=== PATIENT | female | born 1990 | race Caucasian/White ===

== ENCOUNTER 2019-10-22 11:31 | Outpatient (CLI) | payer OTHER, SELFPAY ==
[2019-10-22 11:55] VITALS: BP 138/89; PULSE 102
[2019-10-22 12:49] LABS: Basophils Percent Auto 0.1 % (0.2-1.2); Eosinophils Absolute Auto 0.1 K/mm3 (0-0.3); Eosinophils Percent Auto 0.5 % (0-4.4); Hemoglobin 10.4 g/dL (12.0-15.0); Immature Granulocyte Absolute 0.05 K/mm3 (0.00-0.031); Immature Granulocyte Percent A 0.5 % (0-0.5); Lymphocytes Absolute Auto 1.16 K/mm3 (0.9-3.2); Lymphocytes Percent Auto 12.4 % (18.3-44.2); Mean Corpuscular HGB Conc 32.5 g/dl (32-36); Monocytes Absolute Auto 0.6 K/mm3 (0.1-0.6); Monocytes Percent Auto 6.5 % (2.6-8.5); Neutrophils Absolute Auto 7.5 K/mm3 (1.3-6.7); Platelet Count Result 289 k/mm3 (150-375); Red Blood Count 3.72 M/mm3 (4.2-5.4); Red Cell Distribution Width 14.4 % (11.5-14.5); White Blood Count 9.4 K/mm3 (4.5-10.0)
[2019-10-22 12:59] LABS: Add Urine Microscopic? YES; Appearance Urine Clear (Clear); Bacteria Urine Trace /hpf; Bilirubin Urine Negative (Negative); Blood Urine Negative (Negative); Color Urine Yellow (Yellow); Glucose Urine UA Negative (Negative); Ketones Urine Negative (Negative); Leukocyte Esterase Ur Trace LEU/UL (Negative); Mucus Urine Rare /lpf; Nitrate Urine Negative (Negative); Protein Urine Negative (Negative); RBC Urine 0-2 /hpf (0-2); Specific Grav Ur 1.011 (1.001-1.035); Squamous Epithelial Cell Urine Occasional /hpf (Few); Urobilinogen Urine Negative mg/dL (<2.0); WBC Urine 0-3 /hpf
[2019-10-22 13:00] LABS: Creatinine Urine 63.8 mg/dL; Total Protein Urine Random 12 mg/dL
[2019-10-22 13:02] LABS: Alanine Aminotransferase 12 U/L (4-35); Albumin Level 3.3 g/dL (3.5-5.1); Alkaline Phosphatase 139 U/L (38-126); Anion Gap 6 mmol/L (8-16); Aspartate Amino Transferase 19 U/L (14-36); Bilirubin,Total < 0.1 mg/dL (0.2-1.3); Blood Urea Nitrogen 8 mg/dL (7-17); Calcium 8.7 mg/dL (8.4-10.2); Carbon Dioxide 21 mmol/L (22-30); Chloride 105 mmol/L (98-107); Estimated Glomerular Filt Rate > 60; Glucose 88 mg/dL (65-105); Potassium 3.9 mmol/L (3.4-5.0); Sodium 132 mmol/L (137-145); Uric Acid 4.5 mg/dL (2.5-7.5)
[2019-10-22 13:13] VITALS: BP 133/77; PULSE 105
== END 2019-10-22 13:25 | disposition home or self-care (01) ==
LOC: ANHOBOP 11:36
PROVIDERS: PCP Family Medicine; Visit Provider Advanced Practice Midwife
DX: O13.9 Gestational [pregnancy-induced] hypertension without significant proteinuria, unspecified trimester (principal); Z3A.00 Weeks of gestation of pregnancy not specified
CPT/HCPCS: 36415; 59025; 80053; 81001; 82570; 84156; 84550; 85025

== ENCOUNTER 2019-10-29 17:39 | Inpatient (IN) | payer OTHER, SELFPAY ==
[2019-10-29] VITALS (43 sets, daily range): BP systolic 125–147; BP diastolic 70–122; PULSE 84–115; O2SAT 98–100; BMI 36.3
[2019-10-29 16:37] LABS: Basophils Percent Auto 0.1 % (0.2-1.2); Eosinophils Absolute Auto 0.1 K/mm3 (0-0.3); Eosinophils Percent Auto 0.6 % (0-4.4); Hematocrit 31.1 % (37.0-47.0); Hemoglobin 9.9 g/dL (12.0-15.0); Immature Granulocyte Absolute 0.04 K/mm3 (0.00-0.031); Immature Granulocyte Percent A 0.4 % (0-0.5); Lymphocytes Absolute Auto 1.41 K/mm3 (0.9-3.2); Lymphocytes Percent Auto 13.7 % (18.3-44.2); Mean Corpuscular HGB Conc 31.8 g/dl (32-36); Mean Corpuscular Hemoglobin 27.3 pg (26-34); Mean Corpuscular Volume 85.7 fl (80-100); Mean Platelet Volume 11.8 fl (7.4-10.4); Monocytes Absolute Auto 0.6 K/mm3 (0.1-0.6); Monocytes Percent Auto 5.8 % (2.6-8.5); Neutrophils Absolute Auto 8.2 K/mm3 (1.3-6.7); Neutrophils Percent Auto 79.4 % (45.5-73.1); Platelet Count Result 307 k/mm3 (150-375); Red Blood Count 3.63 M/mm3 (4.2-5.4); Red Cell Distribution Width 14.4 % (11.5-14.5); White Blood Count 10.3 K/mm3 (4.5-10.0)
[2019-10-29 16:44] LABS: Alanine Aminotransferase 11 U/L (4-35); Albumin Level 3.3 g/dL (3.5-5.1); Alkaline Phosphatase 163 U/L (38-126); Anion Gap 7 mmol/L (8-16); Aspartate Amino Transferase 20 U/L (14-36); Bilirubin,Total 0.2 mg/dL (0.2-1.3); Blood Urea Nitrogen 6 mg/dL (7-17); Calcium 8.7 mg/dL (8.4-10.2); Carbon Dioxide 20 mmol/L (22-30); Chloride 104 mmol/L (98-107); Estimated Glomerular Filt Rate > 60; Glucose 78 mg/dL (65-105); Potassium 3.9 mmol/L (3.4-5.0); Sodium 131 mmol/L (137-145); Uric Acid 4.1 mg/dL (2.5-7.5)
[2019-10-29 16:47] LABS: Creatinine Urine 15.8 mg/dL; Total Protein Urine Random 13 mg/dL
--- NOTE | 2019-10-29 18:19 | LDADM ---
This patient, Summer Hirsch, was admitted to Labor/Delivery/Recovery 107 on 10/29/19 at 17:39. Plans for labor, pain management and were discussed with patient. Patient/family oriented to hospital policies and general routines including ID bracelet, bed and alarms, visiting hours, pain management, procedures, bathroom and other care routines, personal items, smoking policy, room service/diet and guest tray routines, security routines, and visiting hours. Patient/Family are encouraged to report perceived risks to care and to ask questions if they do not understand what they are told or what they should do. See OBIX for further documentation.
--- NOTE | 2019-10-29 20:02 | WPDANESEPPF ---
Anes - Initial Pre Proc Eval Procedure: labor epidural Date/Time: 10/29/19 20:02 Surgeon: Michaela Davidson MD Pre Op Diagnosis: labor pain Pre Op Diagnosis: Elevated BP Patient Data Age: 28 Gender: F Height: 1.6 m Weight: 93 kg Last Vital Signs Pulse 102 H 10/29/19 19:45 BP 132/78 10/29/19 19:45 Allergies Allergy/AdvReac Type Severity Reaction Status Date / Time No Known Allergies Allergy Verified 10/09/19 14:34 Home Medications Medication Instructions Recorded Confirmed Type PNV cmb#95-ferrous fumarate-FA 1 tablet PO DAILY 10/09/19 10/22/19 History [] metronidazole 500 mg PO BID 10/22/19 10/22/19 History Laboratory Tests 10/29/19 10/29/19 10/29/19 16:22 16:22 16:22 WBC 10.3 K/mm3 H K/mm3 (4.5-10.0) RBC 3.63 M/mm3 L M/mm3 (4.2-5.4) Hgb 9.9 g/dL L g/dL (12.0-15.0) Hct 31.1 % L % (37.0-47.0) MCV 85.7 fl fl (80-100) MCH 27.3 pg pg (26-34) MCHC 31.8 g/dl L g/dl (32-36) RDW 14.4 % % (11.5-14.5) Plt Count 307 k/mm3 k/mm3 (150-375) MPV 11.8 fl H fl (7.4-10.4) Immature Gran % (Auto) 0.4 % % (0-0.5) Neut % (Auto) 79.4 % H % (45.5-73.1) Lymph % (Auto) 13.7 % L % (18.3-44.2) [place] % (Auto) 5.8 % % (2.6-8.5) Eos % (Auto) 0.6 % % (0-4.4) Baso % (Auto) 0.1 % L % (0.2-1.2) Lymph # (Auto) 1.41 K/mm3 K/mm3 (0.9-3.2) [place] # (Auto) 0.6 K/mm3 K/mm3 (0.1-0.6) Eos # (Auto) 0.1 K/mm3 K/mm3 (0-0.3) Baso # (Auto) 0.0 K/mm3 K/mm3 (0.0-0.1) Abs Immat Gran (auto) 0.04 K/mm3 H K/mm3 (0.00-0.031) Absolute Neuts (auto) 8.2 K/mm3 H K/mm3 (1.3-6.7) Absolute Nucleated RBC 0.0 K/mm3 K/mm3 (0.0-0.012) Nucleated RBC % 0.0 % % (0.0-0.2) Sodium 131 mmol/L L mmol/L (137-145) Potassium 3.9 mmol/L mmol/L (3.4-5.0) Chloride 104 mmol/L mmol/L (98-107) Carbon Dioxide 20 mmol/L L mmol/L (22-30) Anion Gap 7 mmol/L L mmol/L (8-16) BUN 6 mg/dL L mg/dL (7-17) Creatinine 0.60 mg/dL L mg/dL (0.7-1.0) Estim Creat Clear Calc Not Reportable Estimated GFR > 60 (59 - ) Glucose 78 mg/dL mg/dL (65-105) Uric Acid 4.1 mg/dL mg/dL (2.5-7.5) Calcium 8.7 mg/dL mg/dL (8.4-10.2) Total Bilirubin 0.2 mg/dL mg/dL (0.2-1.3) AST 20 U/L U/L (14-36) ALT 11 U/L U/L (4-35) Alkaline Phosphatase 163 U/L H U/L (38-126) Total Protein 7.0 g/dL g/dL (6.3-8.2) Albumin 3.3 g/dL L g/dL (3.5-5.1) U Random Total Protein 13 mg/dL mg/dL Urine Creatinine 15.8 mg/dL mg/dL RPR Blood Type Antibody Screen 10/29/19 10/29/19 18:19 18:19 WBC RBC Hgb Hct MCV MCH MCHC RDW Plt Count MPV Immature Gran % (Auto) Neut % (Auto) Lymph % (Auto) [place] % (Auto) Eos % (Auto) Baso % (Auto) Lymph # (Auto) [place] # (Auto) Eos # (Auto) Baso # (Auto) Abs Immat Gran (auto) Absolute Neuts (auto) Absolute Nucleated RBC Nucleated RBC % Sodium Potassium Chloride Carbon Dioxide Anion Gap BUN Creatinine Estim Creat Clear Calc Estimated GFR Glucose Uric Acid Calcium Total Bilirubin AST ALT Alkaline Phosphatase Total Protein Albumin U Random Total Protein Urine Creatinine RPR Pending Blood Type A Positive Antibody Scre
--- NOTE | 2019-10-29 20:03 | WPDOBADMIT ---
Obstetrics - Admit Note Admission Note: record reviewed. No pertinent additions to the history and/or any subsequent changes in the physical findings that are not consistent with the expected course of the were found. MIL for GHTN, PCR .8, increased swelling and visual changes, SVE 3/70/-2, AROM small amount of clear odorless fluid Additions to the history and/or subsequent changes in the physical findings follow. None.
[2019-10-29] MEDS: LACTATED RINGERS 1,000 ML 125 ML IV CONT (20:40)
[2019-10-29] MEDS: OXYTOCIN 30 UNITS/NS 500 ML 30 UNITS/500 ML BAG 6 UNITS IV CONT (20:40)
[2019-10-30] VITALS (73 sets, daily range): BP systolic 91–144; BP diastolic 63–93; PULSE 80–140; RESP 12–18; TEMP 36.6–37; O2SAT 97–100
[2019-10-30] MEDS: LACTATED RINGERS 1,000 ML 125 ML IV CONT (01:17)
--- NOTE | 2019-10-30 03:51 | PM.OBPRVD ---
OB - Delivery Note Procedure Delivery date: 10/30/19 Procedure: Vaginal delivery events: Induced HTN Induction method: AROM and per pitocin protocol Delivery monitor: external FHT and internal uterine Route of delivery: Laceration description: None Specimen: Yes Estimated blood loss (mL): 135 Anesthesia type: Epidural Disposition: other () [place] Baby Date of : 10/30/19 Time of : 03:38 Weeks of gestation at delivery: 38 gender: Female Weight (pounds): 6 Weight (ounces): 7 presentation: vertex position: Left Occiput Anterior Placenta delivery description: Spontaneous cord vessel description: 3 Vessels, Nuchal Cord, Tight and Clamped/Cut score one minute: 3 score five minutes: 9 Narrative: Baby delivered and handed to nursery. At our departure baby and mother in stable condition.
[2019-10-30] MEDS: OXYTOCIN 30 UNITS/NS 500 ML 30 UNITS/500 ML BAG 125 UNITS IV CONT (04:23)
--- NOTE | 2019-10-30 07:50 | OBPPTRN ---
0630 Patient transferred to post room #291 via W/C. Support person present. Oriented to unit, room, information board, rooming in, admission packet and security measures. Patient verbalizes understanding.
[2019-10-30] MEDS: MULTIVIT/MIN/PREN/FOL AC/IRON TABLET 1 TAB PO (09:28)
[2019-10-30] MEDS: BENZOCAINE 20% AER SPR (*SP) 56 GM CAN 1 SPRAY TOPICAL (09:38)
[2019-10-30] MEDS: WITCH HAZEL 40 PADS 1 PAD TOPICAL (09:38)
[2019-10-30 11:41] LABS: Rapid Plasma Reagin Non-Reactive (NonReactive)
--- NOTE | 2019-10-30 13:15 | PC.NURSE ---
Mother called out for assist with latch due to tenderness. Reviewed feeding cues, frequencies, duration of feedings, feeding elimination flow sheet, and signs of adequate intake. Demonstrated stimulation techniques to wake infant for feeding. Mother is attempting latch with cradle, allowing infant to self latch. Assisted with infant to breast. Reviewed positioning/alignment in cross cradle, holding breast in U hold and guided asymmetrical latch on. Discussed rational for each. Within a few attempts was able to latch correctly. nursed eagerly, with steady draws and frequent swallowing noted. Mother quickly reports she can feel infant is latched differently and has no discomfort. Reviewed signs of a correct latch, effective nursing and suck swallow ratio. Infant was able to maintain latch without discomfort to mother. Nipple care reviewed. Suggested mother stimulate while feeding to keep awake and nursing effectively and to assist with maintaining deep latch. Instructed mother to call out for RN assistance if she is unable to latch infant for feeding or she has discomfort with nursing. Instructed feeding should be initiated three hours from start of last feeding or if feeding cues are noted before. Mother voiced understanding of information shared.
[2019-10-30] MEDS: IBUPROFEN 600 MG TABLET PO ×2 (16:52→22:20)
[2019-10-30] MEDS: POLYSACCHARIDE IRON COMPLEX 150 MG CAPSULE PO (16:53)
[2019-10-31 06:05] LABS: Hematocrit 25.9 % (37.0-47.0); Hemoglobin 8.4 g/dL (12.0-15.0)
--- NOTE | 2019-10-31 07:38 | P.PNOB_ITS ---
OB - PN: Subj Subjective Date/time seen: 10/31/19 07:38 Patient comments: no complaints, pain well controlled and other (Lochia similar to menses) [place] baby status: doing well Narrative: No LACKEY/visual changes. She hopes to go home later today OB - PN: Obj Data Labs CBC & Chem 7: 10/31/19 05:41 10/29/19 16:22 Labs: Laboratory Results - last 24 hr 10/29/19 10/31/19 18:19 05:41 Hgb 8.4 L Hct 25.9 L RPR Non-reactive OB - PN A/P Plan day: 1 (s/p vaginal delivery, doing well) Plan: routine care and discharge home (Follow up in 1 week due to PIH) Time Spent With Patient Time: Total time spent is greater than 50% in coordination of care (as documented) at patient's floor/unit and/or counseling patient: Time with patient: less than 15 minutes Exam Const: General: no acute distress GI: Inspection: other (Fundus firm and nontender at umbilicus) GI Palp: Yes Soft to palpation and No Tenderness to palpation present (GI) Extrem: General: no edema
--- NOTE | 2019-10-31 07:39 | WPDANLDPN2 ---
Anes-Prog Note L&D Date/Time: 10/31/19 07:39 Comfortable throughout: labor Neuraxial method: epidural Epidural/Spinal procedure site: clean & non-tender Neuro status: Neuro function grossly intact. Cardiovascular status: normal Respiratory status: normal Airway patency: baseline Mental status: baseline Post-Op hydration status: normal Vital Signs: Last Vital Signs Temp 36.7 C 10/30/19 19:10 Pulse 103 H 10/30/19 19:10 Resp 12 10/30/19 19:10 BP 122/75 10/30/19 19:10 Pulse Ox 99 10/30/19 07:35 Post-procedural complaints: none Patient feedback: Patient satisfied with anesthetic care.
[2019-10-31 08:15] VITALS: BP 128/82; PULSE 85; RESP 16; TEMP 36.6; O2SAT 99
[2019-10-31] MEDS: MULTIVIT/MIN/PREN/FOL AC/IRON TABLET 1 TAB PO (08:39)
[2019-10-31] MEDS: IBUPROFEN 600 MG TABLET PO (08:39)
[2019-10-31] MEDS: DOCUSATE SODIUM 100 MG CAPSULE PO (08:39)
[2019-10-31] MEDS: POLYSACCHARIDE IRON COMPLEX 150 MG CAPSULE PO (08:39)
--- NOTE | 2019-10-31 09:00 | PC.NURSE ---
Consulted with patient, mother reports she is very sore to the nipples. fed freq and for long durations during the night at the 0640 feeding this morning mother states she decided she did not want to put to breast due to pain. Both nipples are reddened and a small crack noted to base of left nipple. Discussed attempting with a nipple shield. Offered and explained nipple shield, mother is willing to try. Discussed nipple shield precautions and possible complications. Instructions given on application and cleaning of shield. Patient able to return demonstration on proper application of shield. Discussed the need to initiate pumping if infant continues to nurse with the shield. Patient verbalizes understanding. With shield in place. Assisted with infant to breast. Reviewed positioning/alignment, holding breast and asymmetrical latch on. was able to latch correctly. nursed eagerly, with steady draws mother quickly reports pain and does not wish to continue to breastfeed and will bottle feed. Discussed nipple care. Offered to assist mother with pumping, mother states she does not wish to attempt pumping at this time due to pain. Discussed pumping should not have pain with the difference of vacuum and compression with nursing. Mother would like to wait for several feedings before attempting pumping. Mother states she will pump tomorrow. Discusses stimulation and milk supply. Mother will bottle feed formula as much as desires and will transition to EBM once available. Mother is feeding as required and waking to feed if needed. Infant is currently meeting outcomes for weight, output, jaundice and feeding frequencies. Mother states she feels confident to continue current feeding plan at home. Reviewed transition to breast milk, signs of adequate intake, and engorgement/relief. Instructed to call ICP if intake/output less than required. Reviewed regular medications mother is taking. Information provided per [facility]. Reviewed community resources on the [facility] website and in the Mom/Baby guide. Information on outpatient services provided. Mother has no further questions at this time.
[2019-10-31] MEDS: TETANUS,DIPHTHERIA,AC PERTUSSIS ADULT (0.5 ML) BOOSTRIX IM (14:17)
--- NOTE | 2019-10-31 14:23 | PC.NURSE ---
Patient viewed the discharge video Mother & Baby Care, The First Two Weeks . Patient was given the opportunity and encouraged to ask questions. Patient verbalized understanding of information shared and has been given the mother/baby guide for home reference.
[2019-11-01 09:00] VITALS: BP 126/76; PULSE 97; RESP 20; O2SAT 99
--- NOTE | 2019-11-03 08:51 | PM.OBDSVD ---
DS: Admitting Diagnosis Admitting Diagnosis Admitting Diagnosis: Elevated BP OB - DS: Summary OB Procedures : None OB Procedures Intrapartum: Spontaneous Vag Delivery OB Procedures: : None Time Spent with Patient Time attestation: Total time spent providing and/or coordinating discharge services: DS: Data Data Completed and Pending Completed studies during hospitalization: Pending at discharge 10/30/19 03:38 Surgical [PTH] Routine Discharge Plan Discharge Attending physician on discharge: Michaela Davidson Consulting providers: Connie Valdez Stephen J. Discharging Clinician: Carrie Coughlin Patient Disposition: Home, Self-Care Activity: may shower and pelvic rest Diet: regular Discharge Instructions: Education: Mom and Baby Guide Given to: Mother Follow-Up: Call your delivering provider's office for an appointment to be seen in: 1 Week Mom and baby should come to the [facility] for the follow-up appointment. Appointment Date/Time: Friday, November 01, 2019 at 8:00 a.m. What to expect at your follow-up visit: Blood Pressure Check Physical Assessment Call [phone] if you are unable to keep your appointment time. BREAST CARE: * Wear a snug supportive bra. * For engorgement discomfort: Breast Feeding: * Apply warm moist washcloths * Express milk as needed to relieve engorgement * Wear loose clothing Bottle Feeding: * May apply ice packs * For sore nipples: * Identify correct latch-on * Apply warm moist washcloths before and after nursing * Air dry nipples after nursing * May apply Lansinoh cream to nipples EPISIOTOMY/PERINEAL CARE: * Until bleeding stops, use your sharon bottle after urinating * Change your pad frequently throughout the day * You may take sitz baths several times a day (fill your bathtub with warm water and soak for 20 minutes.) Do NOT bathe in the water * No tub baths until seen by your physician - You may shower ACTIVITY: * Rest as much as possible. * Do not exercise or lift anything heavier than your baby (such as laundry or other children.) * Avoid stairs or driving as much as possible. * Do not put anything into the vagina. No douching, tampons, or sexual activity until seen by physician. NOTIFY PHYSICIAN IF YOU HAVE ANY QUESTIONS OR IF ANY OF THE FOLLOWING SYMPTOMS OCCUR: * If your vaginal bleeding becomes foul smelling. * If your vaginal bleeding becomes more heavy than a period or if your bleeding changes from pink to bright red. However, you may pass an occasional walnut-sized clot once or twice for the first week . * If you experience a sharp, shooting pain in you calves. * If you discover a hard, reddened area on your breast or if you experience flu-like symptoms. DIET: * Eat regular, well-balanced meals. * Drink plenty of fluids daily. If , drink to thirst. Stand Alone Forms: General Discharge Information Follow-up/Referrals: Connie Valdez CNM [Certified Nurse C D Reactor Operator] - 1 Week Discharge Medications: New ibuprofen 600 mg Tablet 600 mg PO Q6H PRN (Reason: Cramping) Qty: 60 RF: 0 Continued metronidazole 500 mg tablet 500 mg PO BID RF: 0 PNV cmb#95-ferrous fumarate-FA [] 28 mg iron- 800 mcg Tablet 1 tablet PO DAILY RF: 0 Date of admission: 10/29/19 17:39 Primary Care Provider: Annmarie Torres Admitting Provider: Mcihaela Davidson Discharge Date/Time: 10/31/19 15:52 Attending physician on admission: Carrie Coughlin
--- NOTE | 2019-11-20 08:05 | PM.OBDSVD ---
DS: Admitting Diagnosis Admitting Diagnosis Admitting Diagnosis: Elevated BP, stable OB - DS: Summary OB Procedures : None OB Procedures Intrapartum: Spontaneous Vag Delivery OB Procedures: : None Time Spent with Patient Time attestation: Total time spent providing and/or coordinating discharge services: DS: Data Data Completed and Pending Completed studies during hospitalization: Pending at discharge 10/30/19 03:38 Surgical [PTH] Routine Discharge Plan Discharge Attending physician on discharge: Michaela Davidson Consulting providers: Connie Valdez Stephen J. Discharging Clinician: Carrie Coughlin Patient Disposition: Home, Self-Care Activity: may shower and pelvic rest Diet: regular Discharge Instructions: Education: Mom and Baby Guide Given to: Mother Follow-Up: Call your delivering provider's office for an appointment to be seen in: 1 Week Mom and baby should come to the [facility] for the follow-up appointment. Appointment Date/Time: Friday, November 01, 2019 at 8:00 a.m. What to expect at your follow-up visit: Blood Pressure Check Physical Assessment Call [phone] if you are unable to keep your appointment time. BREAST CARE: * Wear a snug supportive bra. * For engorgement discomfort: Breast Feeding: * Apply warm moist washcloths * Express milk as needed to relieve engorgement * Wear loose clothing Bottle Feeding: * May apply ice packs * For sore nipples: * Identify correct latch-on * Apply warm moist washcloths before and after nursing * Air dry nipples after nursing * May apply Lansinoh cream to nipples EPISIOTOMY/PERINEAL CARE: * Until bleeding stops, use your sharon bottle after urinating * Change your pad frequently throughout the day * You may take sitz baths several times a day (fill your bathtub with warm water and soak for 20 minutes.) Do NOT bathe in the water * No tub baths until seen by your physician - You may shower ACTIVITY: * Rest as much as possible. * Do not exercise or lift anything heavier than your baby (such as laundry or other children.) * Avoid stairs or driving as much as possible. * Do not put anything into the vagina. No douching, tampons, or sexual activity until seen by physician. NOTIFY PHYSICIAN IF YOU HAVE ANY QUESTIONS OR IF ANY OF THE FOLLOWING SYMPTOMS OCCUR: * If your vaginal bleeding becomes foul smelling. * If your vaginal bleeding becomes more heavy than a period or if your bleeding changes from pink to bright red. However, you may pass an occasional walnut-sized clot once or twice for the first week . * If you experience a sharp, shooting pain in you calves. * If you discover a hard, reddened area on your breast or if you experience flu-like symptoms. DIET: * Eat regular, well-balanced meals. * Drink plenty of fluids daily. If , drink to thirst. Stand Alone Forms: General Discharge Information Follow-up/Referrals: Connie Valdez CNM [Certified Nurse Structural Designer] - 1 Week Discharge Medications: New ibuprofen 600 mg Tablet 600 mg PO Q6H PRN (Reason: Cramping) Qty: 60 RF: 0 Continued metronidazole 500 mg tablet 500 mg PO BID RF: 0 PNV cmb#95-ferrous fumarate-FA [] 28 mg iron- 800 mcg Tablet 1 tablet PO DAILY RF: 0 Date of admission: 10/29/19 17:39 Primary Care Provider: Annmarie Torres Admitting Provider: Michaela Davidson Discharge Date/Time: 10/31/19 15:52 Attending physician on admission: Carrie Coughlin
== END 2019-10-31 15:52 | disposition home or self-care (01) | DRG 807 ==
LOC: ANHLDR 19:03 → ANHOB2 10-30 10:43 → ANHLDR 11-01 13:08 → ANHOB2 11-01 13:08
PROVIDERS: Advanced Practice Midwife; Admitting Provider Obstetrics & Gynecology; PCP Family Medicine; Visit Provider Obstetrics & Gynecology
DX: O13.4 Gestational [pregnancy-induced] hypertension without significant proteinuria, complicating childbirth (principal); Z37.0 Single live birth; Z3A.38 38 weeks gestation of pregnancy; O69.1XX0 Labor and delivery complicated by cord around neck, with compression, not applicable or unspecified; Z23 Encounter for immunization
CPT/HCPCS: 36415; 59025; 80053; 82570; 84156; 84550; 85014; 85018; 85025; 86592; 86850; 86900; 86901; 88307; 90471; 90686; 90715; A9270; G0008; J2590; J7120